=== PATIENT | male | born 1945 | race Caucasian/White ===

== ENCOUNTER 2016-06-19 17:49 | Emergency (ER) | payer MEDICARE, OTHER ==
--- NOTE | ~2016-06-19 | ER ---
PATIENT'S NAME: MARYLOU KLEIN [facility] AGE: 71 Y [address] ROOM: [place] [address] LOCATION: ED ADMIT DATE: 06/19/2016 ER/Outpatient Report DISCHARGE DATE: 06/19/2016 FAMILY PHYSICIAN: Tommie Colorado MD ATTENDING PHYSICIAN: Ric Sow Admission date and time documented in medical record. I saw the patient at 1810 hours when I came on shift. CHIEF COMPLAINT: Left foot injury. HISTORY OF PRESENT ILLNESS: The patient is a 71-year-old male, who about an hour prior to admission to the emergency room was outside working with a payloader and the payloader bucket fell crushing his left foot. Heavy metal bucket. He has swelling and pain on distal half of the midfoot to the toes. He did not suffer any open wounds. There was no active bleeding. There was marked ecchymosis and swelling. Denies any Achilles tendon pain, ankle pain, left lower leg, knee, upper leg or hip pain. No pelvic pain. No other injuries. He is unable to bear weight. HOME MEDICATIONS: See attached medication list. ALLERGIES: NONE. SOCIAL HISTORY: Nonsmoker, nondrinker. SIGNIFICANT PAST MEDICAL HISTORY: 1. Hypertension. 2. Dyslipidemia. 3. Nephrolithiasis. 4. Dislocated left elbow with closed reduction. OPERATIONS: 1. Bilateral knee arthroscopy. 2. Closed reduction of left elbow dislocation. REVIEW OF SYSTEMS: All systems reviewed by me are negative with exception of those discussed in the history of present illness. PATIENT'S NAME: MARYLOU KLEIN [facility] AGE: 71 Y [address] ROOM: [place], [place] [address] LOCATION: ED ADMIT DATE: 06/19/2016 ER/Outpatient Report DISCHARGE DATE: 06/19/2016 FAMILY PHYSICIAN: Tommie Colorado MD ATTENDING PHYSICIAN: Ric Sow PHYSICAL EXAMINATION: VITAL SIGNS: Temperature 97.9 tympanic, pulse 67, respirations 14, blood pressure 151/88, O2 saturation on room air is 95%. EXTREMITIES: On examination of the left foot, there is marked ecchymosis swelling of the distal half of the left midfoot extending into the toes. Toes are intact other than there is some swelling of the great toe with ecchymosis. No open wounds. Neurovascularly intact. Pulse intact. Good capillary refill. No tenderness or abnormality of the ankle, Achilles tendon, lower leg, knee, upper leg or hip. Range of motion of the hip, knee and ankle were intact. He has problems wiggling his toes just because of the swelling and pain. No pain medication was given because the patient refused. IMAGING DATA: X-ray of the left foot shows a comminuted fracture, nondisplaced distal phalanx, left great toe. No other fractures or dislocations were noted. We will review x-ray with the radiologist. IMPRESSION: Crush injury, distal left midfoot and toes with comminuted nondisplaced fracture of the distal phalanx, left great toe. The patient has soft tissue injury, swelling and ecchymosis. No loss of sensation or vascularization. PLAN: The patient was placed in a CAM walking boot. He was given crutches for light weight or nonweightbearing. Ice and elevation intermittently over the next 72 hours then as needed thereafter. Tylenol or ibuprofen 2 every 4-6 hours as needed for pain. [place] 5/325 as needed for pain #16. Follow up with personal physician in 7-10 days for re-x-ray and re-evaluation. May need to see an orthopedic surgeon. Discussion ensued with the patient and his concerning my findings and recommendations. The patient was fitted with a CAM walking boot and crutches. Dismissed home. The patient's agreed with the treatment plan. MD NANCY QUINTANA/modl /[id number] d: 06/19/16 2329 t: 06/20/161900, OUTPATIENT REPORT
== END 2016-06-19 18:40 | disposition disaster alternative care site (69) ==
LOC: GMED 17:49
DX: S97.112A Crushing injury of left great toe, initial encounter (principal); S92.425A Nondisplaced fracture of distal phalanx of left great toe, initial encounter for closed fracture; I10 Essential (primary) hypertension; E78.5 Hyperlipidemia, unspecified; Z79.82 Long term (current) use of aspirin; Z79.899 Other long term (current) drug therapy; Z87.442 Personal history of urinary calculi; W20.8XXA Other cause of strike by thrown, projected or falling object, initial encounter